=== PATIENT | male | born 1995 | race Caucasian/White ===

== ENCOUNTER 2019-04-16 02:46 | Emergency (ER) | payer OTHER ==
[~2019-04-16] VITALS: Ht 182.9 cm; Wt 79.2 kg
[2019-04-16 02:48] VITALS: BP 146/82
--- NOTE | 2019-04-16 03:02 | NUR ---
THIS IS A 23Y M THAT COMES IN FOR CONSTIPATION. PT STS LAST BM WAS FRIDAY AND HAS BEEN DRINKING MORE THAN NORMAL. PT STS HE TRIED PRUNE JUICE AT HOME. PT STS HE HAS HX OF IRREGULAR BM. PT RESTING ON TTA [place].
--- NOTE | 2019-04-16 03:04 | NUR ---
PA AT BEDSIDE
[2019-04-16] MEDS ORDERED: KETOROLAC 30 MG/1 ML ONE (03:13)
--- NOTE | 2019-04-16 03:20 | NUR ---
PT RESTING ON GURNEY, MEDICATED PER MAR PROVIDED WARM BLANKETS. AWAITNG XRAY
--- NOTE | 2019-04-16 03:29 | NUR ---
PT TO XRAY AT THIS TIME
[2019-04-16] MEDS ORDERED: KETOROLAC 30 MG/1 ML IM ONE (03:30)
--- NOTE | 2019-04-16 04:29 | NUR ---
Patient/Caregiver given discharge instructions and they have confirmed that they understand the instructions. Patient ambulatory with steady gait.
== END 2019-04-16 04:42 | disposition home or self-care (01) ==
LOC: ED 04:39
DX: K59.00 Constipation, unspecified (principal)
CPT/HCPCS: 74018; 96372; 99283; J1885